=== PATIENT | female | born 1960 | race Caucasian/White ===

== ENCOUNTER 2019-07-13 10:23 | Emergency (ER) | payer BC ==
[~2019-07-13] VITALS: Ht 152.4 cm; Wt 71.8 kg
--- OUTSIDE RECORDS SUMMARY | 2019-07-13 10:25 | XMS REPORT | Summary of Care ---
Author Author Fariba Ram M.A. Unknown Address Unknown Phone Unavailable Care Team Providers Care Rug Sizer Name Role Phone EVANGELINA BAKER M.D. Unavailable Unavailable Unavailable Unavailable Functional Status Name Dates Details Functional status health issues are not documented Status: Name Dates Details Cognitive status health issues are not documented Status: Problems Name Dates Details Right wrist pain (719.43, M25.531) Status: Active Pain of right hand (729.5, M79.641) Status: Active Arthritis of carpometacarpal (CMC) joint of right thumb (716.94, M18.11) Status: Active Medications Name Dates Details Meloxicam 15 MG Oral Tablet TAKE 1 TABLET DAILY Quantity: 14 EVANGELINA BAKER M.D. * Start : 11-Feb-2018 Active Omeprazole 40 MG Oral Capsule Delayed Release TAKE 1 CAPSULE DAILY * Quantity: 14 Refills: 0 EVANGELINA BAKER M.D. * Start : 11-Feb-2018 Active Allergies and Adverse Reactions Name Dates Details No Known Drug Allergies (Allergy) Status: Active Procedures Procedure Dates Details History of Knee surgery Completed History of section Completed Immunization Name Dates Details Immunizations not documented Family History Name Dates Details No pertinent family history (V49.89, Z78.9) Status: Active Name Dates Details No pertinent family history (V49.89, Z78.9) Status: Active Social History Name Dates Details Unknown if ever smoked Vital Signs Date Test Result Details No Known Vitals to report Results Date Description Value Details [id number] [U] XRAY HAND MIN 3 VWS RIGHT 63830 XR HAND MIN 3 VWS RIGHT Images acquired, not reported on this accession number. Plan of Care Name Dates Details Planned Observations Planned Goals not documented Interventions Provided Medication Changes* Meloxicam 15 MG Oral Tablet - Start * Omeprazole 40 MG Oral Capsule Delayed Release - Start Labs/Procedures/Imaging* [U] XRAY HAND MIN 3 VWS RIGHT 61218; Done: 11 Feb 2018 Instructions Name Dates Details Instructions not documented Encounters Appointment; EVANGELINA BAKER M.D. Encounter Diagnosis: Problem not documented On: 11-Feb-2018 9:00
[2019-07-13] MEDS ORDERED: HYDROCODONE/APAP 7.5MG-325MG 1 EA TAB PO ONE (11:00)
[2019-07-13] MEDS ORDERED: HYDROCODONE/APAP 5MG-325MG TAB ONE (11:23)
[2019-07-13] MEDS ORDERED: HYDROCODONE/APAP 5MG-325MG TAB PO ONE (11:30)
--- NOTE | 2019-07-13 11:51 | Diagnostic Imaging Report ---
EXAMINATION: HUMERUS 2 VIEW LT - HOPD, ELBOW 3 VIEW LT - HOPD, FOREARM 2 VIEW LT -HOPD, SHOULDER 2+VW LT -HOPD INDICATION: Trauma COMPARISON: None FINDINGS: Left shoulder: Internal and external rotation images of the left shoulder demonstrate no acute fracture or dislocation. Alignment is anatomic. No substantial degenerative change. The soft tissues appear unremarkable. Visualized portions of the left lung appear clear. Left humerus: No acute fracture or dislocation. Alignment is anatomic. Soft tissues appear unremarkable. Left elbow: No acute fracture or dislocation. Alignment is anatomic. No substantial joint effusion. Soft tissues appear unremarkable. Left forearm: No acute fracture or dislocation. Alignment appears anatomic. Soft tissues appear unremarkable. IMPRESSION: No acute osseous injury of the imaged portions of the left upper extremity. Signed by: Conrad Schultz MD on 07/13/2019 11:48 AM
[2019-07-13] MEDS ORDERED: IBUPROFEN600 MG PO (12:06)
[2019-07-13] MEDS ORDERED: TYLENOL WITH C1 EACH PO (12:06)
[2019-07-13 12:19] VITALS: BP 102/72
== END 2019-07-13 12:18 | disposition home or self-care (01) ==
LOC: FSED 10:23
DX: S52.125A Nondisplaced fracture of head of left radius, initial encounter for closed fracture (principal); S00.31XA Abrasion of nose, initial encounter; S80.01XA Contusion of right knee, initial encounter; W01.0XXA Fall on same level from slipping, tripping and stumbling without subsequent striking against object, initial encounter; Y93.01 Activity, walking, marching and hiking; Y92.89 Other specified places as the place of occurrence of the external cause
CPT/HCPCS: 99283